=== PATIENT | female | born 1980 | race Caucasian/White ===

== ENCOUNTER 2016-07-16 05:19 | Emergency (ER) | payer OTHER ==
[2016-07-16 04:17] LABS: BILIRUBIN NEGATIVE (NEGATIVE); BLOOD 3+ Ery/uL (NEGATIVE); COLOR YELLOW (YELLOW); GLUCOSE (U) NORMAL (NORMAL); KETONE (U) TRACE mg/dL (NEGATIVE); LEUKOCYTES NEGATIVE Leu/uL (NEGATIVE); NITRITE NEGATIVE (NEGATIVE); PROTEIN NEGATIVE (NEGATIVE); SPECIFIC GRAVITY 1.015 (1.001-1.030); UROBILINOGEN 0.2 mg/dL (0.2-1.0)
[2016-07-16 04:24] LABS: BASOPHIL 0.8 % (0-2); EOSINOPHIL 1.2 % (0-5); HCT 44.8 % (37.0-47.0); HGB 14.6 g/dl (12.5-16.0); LYMPHOCYTE 32.6 % (15-48); MCH 30.2 pg (25.0-31.0); MCHC 32.6 g/dL (32.0-36.0); MCV 92.6 fL (78.0-100.0); MONOCYTE 9.6 % (0-12); MPV 11.6 fL (6.0-9.5); NEUTROPHIL 55.8 % (41-80); PLT 251 K/uL (150-400); RBC 4.84 M/uL (4.20-5.40); RDW 13.4 % (11.5-14.0); WBC 12.5 K/uL (4.0-10.5)
[2016-07-16 04:43] LABS: CLARITY CLOUDY (CLEAR)
[2016-07-16 04:48] LABS: BACTERIA 1+; SQUAMOUS EPITHELIAL CELLS >50; URINARY RBC TNTC
[2016-07-16 05:33] LABS: ALBUMIN 4.3 g/dL (3.5-5.0); BILIRUBIN - TOTAL 0.4 mg/dL (0.1-1.0); CREATININE 1.3 mg/dL (0.5-1.0); GLOBULIN (CALCULATION) 2.5 g/dL (2.2-4.2); PHOSPHORUS 1.6 mg/dL (2.7-4.5); POTASSIUM 4.3 mmol/L (3.5-5.1); TOTAL PROTEIN 6.8 g/dL (6.4-8.3)
== END 2016-07-16 06:19 | disposition home or self-care (01) ==
LOC: FER 05:19
PROVIDERS: Emergency Medicine
DX: N13.2 Hydronephrosis with renal and ureteral calculous obstruction (principal); F32.9 Major depressive disorder, single episode, unspecified; Z87.442 Personal history of urinary calculi; Z79.899 Other long term (current) drug therapy
CPT/HCPCS: 36415; 80053; 81001; 84100; 85025; 87088; J1885; J2270; J2405

== ENCOUNTER 2016-07-16 15:01 | Emergency (ER) | payer OTHER ==
[2016-07-16 18:25] LABS: BASOPHIL 0.1 % (0-2); EOSINOPHIL 0 % (0-5); HCT 40.4 % (37.0-47.0); HGB 13.7 g/dl (12.5-16.0); LYMPHOCYTE 4.8 % (15-48); MCH 30.3 pg (25.0-31.0); MCHC 33.9 g/dL (32.0-36.0); MCV 89.4 fL (78.0-100.0); MPV 11.4 fL (6.0-9.5); NEUTROPHIL 91.1 % (41-80); PLT 231 K/uL (150-400); RBC 4.52 M/uL (4.20-5.40)
[2016-07-16 18:28] LABS: WBC 15.1 K/uL (4.0-10.5)
[2016-07-16 18:29] LABS: BILIRUBIN 1+ mg/dL (NEGATIVE); BLOOD 3+ Ery/uL (NEGATIVE); CLARITY HAZY (CLEAR); COLOR YELLOW (YELLOW); GLUCOSE (U) NORMAL (NORMAL); KETONE (U) 1+ (SMALL) mg/dL (NEGATIVE); LEUKOCYTES NEGATIVE Leu/uL (NEGATIVE); NITRITE NEGATIVE (NEGATIVE); PROTEIN 1+ mg/dL (NEGATIVE); UROBILINOGEN 0.2 mg/dL (0.2-1.0)
[2016-07-16 18:38] LABS: URINARY WBC RARE
[2016-07-16 18:39] LABS: BACTERIA TRACE; URINARY RBC TNTC
[2016-07-16 18:40] LABS: MUCOUS LARGE
[2016-07-16 18:45] LABS: CREATININE 0.9 mg/dL (0.5-1.0); POTASSIUM 4.1 mmol/L (3.5-5.1)
== END 2016-07-16 19:24 | disposition home or self-care (01) ==
LOC: FER 15:01
PROVIDERS: Nurse Practitioner Family
DX: N20.0 Calculus of kidney (principal); F41.9 Anxiety disorder, unspecified
CPT/HCPCS: 36415; 80048; 81001; 85025; 99283; J1170; J2405

== ENCOUNTER 2016-07-17 23:12 | Emergency (ER) | payer OTHER ==
[2016-07-18 00:38] LABS: BASOPHIL 0.1 % (0-2); EOSINOPHIL 0.2 % (0-5); HCT 38.4 % (37.0-47.0); HGB 12.8 g/dl (12.5-16.0); LYMPHOCYTE 8.1 % (15-48); MCH 30.1 pg (25.0-31.0); MCHC 33.3 g/dL (32.0-36.0); MCV 90.4 fL (78.0-100.0); MONOCYTE 7.6 % (0-12); MPV 11.7 fL (6.0-9.5); PLT 218 K/uL (150-400); RBC 4.25 M/uL (4.20-5.40); RDW 12.9 % (11.5-14.0); WBC 17.2 K/uL (4.0-10.5)
[2016-07-18 00:48] LABS: CREATININE 1.1 mg/dL (0.5-1.0); POTASSIUM 3.7 mmol/L (3.5-5.1)
[2016-07-18 02:51] LABS: BILIRUBIN NEGATIVE (NEGATIVE); BLOOD 3+ Ery/uL (NEGATIVE); CLARITY SLIGHTLY HAZY (CLEAR); COLOR YELLOW (YELLOW); GLUCOSE (U) NORMAL (NORMAL); KETONE (U) 3+ (LARGE) mg/dL (NEGATIVE); LEUKOCYTES NEGATIVE Leu/uL (NEGATIVE); NITRITE NEGATIVE (NEGATIVE); PROTEIN TRACE (LOW) mg/dL (NEGATIVE); SPECIFIC GRAVITY >=1.030 (1.001-1.030); UROBILINOGEN 0.2 mg/dL (0.2-1.0); pH 5.5 (5.0-9.0)
[2016-07-18 02:56] LABS: BACTERIA TRACE; URINARY RBC 20-50
== END 2016-07-18 04:48 | disposition other institution (70) ==
LOC: FER 23:12
PROVIDERS: Emergency Medicine Emergency Medical Services
DX: N13.2 Hydronephrosis with renal and ureteral calculous obstruction (principal); E86.9 Volume depletion, unspecified; Z87.442 Personal history of urinary calculi
CPT/HCPCS: 36415; 80048; 81001; 85025; J1170; J1885; J2405; J3360